=== PATIENT | female | born 1940 | race Caucasian/White ===

== ENCOUNTER → 2018-03-17 | Outpatient (CLI) | payer OTHER, MEDICARE ==
[~2018-03-17] VITALS: Ht 162.6 cm; Wt 61.6 kg
[~2018-03-17] MED LIST: ACETAMINOPHEN-1 EAC1 PO; ALEVE220 M1 PO; AREDS EYE VITAMIN PO; AREDS PO; CLOBETASOL PROP50 M1 VAG; COZAAR100 MG PO; ESTRACE1 TUBE VAG; HYDROCODON-ACE1 EAC7 PO; PEPCID AC20 MG PO; PRESERVISION A1 EAC2 PO; STOOL SOFTENER100 MG PO; TRAMADOL 50 MG50 MG PO; TRIAMCINOLONE 080 G3 TOP; TUMS PO; TUMS200 MG PO; TYLENOL325 MG PO
--- NOTE | ~2018-03-17 | HPC ---
[facility] [address] [place] [address] PAIN MANAGEMENT CONSULTATION Name: ORTIZ LOPEZ Room #: REG [facility].#: [id number] Admission: 03/17/18 Attend Phys: Matty Diaz MD Discharge: Date of : 36 Report #: [id number] THIS REPORT FOR: //name// CC: Matty Juarez MD DATE OF SERVICE: 03/17/2018 CHIEF COMPLAINT: Followup visit for low back pain with radiculopathy. HISTORY OF PRESENT ILLNESS: The patient returns to pain clinic today complaining of pain mostly across the lumbosacral segment. She has had a previous laminectomy and has spinal stenosis. I have previously injected her above the level of her fusion with some benefit. I also provide for her medication under terms of written opioid agreement. She has been using tramadol 50 mg q. 6 hours, and I allow her 90 tablets with 2 refills. She has been taking at night, often finds that she has difficulty sleeping. We talked about the serotonin effects sometimes can be activating. She might benefit better from taking the Tylenol No. 3 at bedtime. PQRS REVIEW: 1. She has history of osteoarthritis. 2. She has kept her weight down and looks younger than her stated age. Her BMI is 23.3. 3. Pain intensity is generally low except when she is walking, at which time the pain increases fairly significantly. 4. The patient is on no blood thinners. 5. History of hypertension, yes, under treatment with losartan. All medications reviewed and reconciled. 6. She is on an opioid therapy greater than 6 weeks and an opioid contract has been signed. 7. She denies use of tobacco. PHYSICAL EXAMINATION: GENERAL: She is a ana maria 78-year-old that appears younger than her stated age. She moves from sitting to standing position and walks with marked antalgic features. She has difficulty in straightening particularly immediately after getting up. She has tenderness across the lumbosacral segment, particularly across the lumbar region. VITAL SIGNS: Her blood pressure 187/107, heart rate 73. Her BMI 23.3. EXTREMITIES: The scar from her previous surgery is tender. There is no focal weakness. Deep tendon reflexes are diminished bilaterally, 1+ at knees and ankles. IMPRESSION: [facility] [address] [place] [address] PAIN MANAGEMENT CONSULTATION Name: ORTIZ LOPEZ Room #: REG [facility].#: [id number] Admission: 03/17/18 Attend Phys: Matty Diaz MD Discharge: Date of : 36 Report #: [id number] 1. Low back pain with radiculopathy, post-laminectomy syndrome. 2. Spinal stenosis. 3. Management of tramadol with an opioid agreement. I will provide her with a small amount of Tylenol No. 3, which may be more sedating in the evening. Side effects of opioids were discussed, importance of safeguarding all medication. PROCEDURE: Epidural steroid injection under fluoroscopic guidance. She was taken to fluoroscopic suite, placed prone, skin prepped with ChloraPrep. Skin anesthetized over the L5-S1 interspace. I was unable to enter the epidural space there due to osteophytic infiltration of the interspinous ligament and the ligamentum flavum. I then moved the needle to the L3-L4 level above the level of her laminectomy and it was advanced in the epidural space with loss of resistance technique. There was no blood or CSF aspirated. 1 mL of Omnipaque injected. Good spread of dye observed in the epidural space followed by 3 mL of 1% lidocaine mixed with 80 mg of triamcinolone. She tolerated the procedure well. She was observed for 45 minutes and discharged. Followup visit planned in the pain clinic in 3 months. By: [id number] [id number] Matty Diaz MD /nt
[2018-03-17 09:52] VITALS: BP 187/107
--- NOTE | 2018-03-17 10:01 | NUR ---
Pain Clinic Assessment: 1. History of Osteoarthritis: HIPS KNEES History of Rheumatoid Arthritis: 2. Height: 5 ft. 4 in. 162.6 cm. Weight: 135.8 lb. oz. 61.598 kg. Patient's BMI: 23.3 3. Vital Signs: BP: 187/107 Pulse: 73 Resp: 16 Temp: 02 Sat: 95 ECG Mon: 4. Pain Intensity: 1 5. Fall Risk: Dizziness: N Needs help standing or walking: N Fallen in the last 3 months: Y Fall risk comments: 6. Patient on Blood Thinner: None 7. History of Hypertension: Y 8. Opioid Therapy greater than 6 weeks: Y Opiate Contract Signed: 9. Risk Assessment Tool Provided: LOW 10. Functional Assessment Tool: 11. Recreational Drug Use: Never Drug Type: Tobacco Use: Never Smoker Tobacco Type: Amount or Packs/day: How Many Years: Alcohol Use: No Frequency: Quant:
== END | disposition home or self-care (01) ==
LOC: PAIN 07:01
DX: M54.16 Radiculopathy, lumbar region (principal); M48.061 Spinal stenosis, lumbar region without neurogenic claudication; M96.1 Postlaminectomy syndrome, not elsewhere classified; G89.29 Other chronic pain; I10 Essential (primary) hypertension; M19.90 Unspecified osteoarthritis, unspecified site; Z79.891 Long term (current) use of opiate analgesic; Z98.890 Other specified postprocedural states; Z96.659 Presence of unspecified artificial knee joint; Z96.649 Presence of unspecified artificial hip joint; Z79.899 Other long term (current) drug therapy

== ENCOUNTER → 2018-07-17 | Outpatient (CLI) | payer OTHER, MEDICARE ==
[~2018-07-17] VITALS: Ht 162.6 cm; Wt 62.9 kg
[~2018-07-17] MED LIST changes: +CELECOXIB100 MG PO; +K-DUR 20 MEQ T20 MEQ PO
--- NOTE | ~2018-07-17 | HPC ---
[facility] [address] [place] [address] PAIN MANAGEMENT CONSULTATION Name: ORTIZ LOPEZ Room #: REG [facility].#: [id number] Admission: 07/17/18 ������������������ Attend Phys: Matty Diaz MD Discharge: ������������������ Date of : 36 Report #: [id number] THIS REPORT FOR: //name// CC: Matty Juarez DATE OF SERVICE: 07/17/2018 SUBJECTIVE: Followup visit for low back pain with radiculopathy. I last saw the patient in 03/2018, received an epidural on that visit. She had a good response. Pain duration is variable. She has had some injections where the pain relief has been much more extensive. She reports now that her pain is 0 with sitting but when she is up in the morning, she has more pain. She has bilateral lower extremity weakness. She complains of stiffness in her low back and into her legs. Pain intensity can be as high as 7-8. MEDICATIONS: Include Celebrex 100 mg, tramadol 50 mg q.6 hours, acetaminophen as needed, losartan, triamcinolone. She is on no blood thinners, but she is treated for hypertension. She is a bit hypertensive today. She is not a fall risk. She denies use of tobacco. She drinks alcohol in social setting. PHYSICAL EXAMINATION: GENERAL: She is a pleasant 78 years old. VITAL SIGNS: Blood pressure 157/100, heart rate 72, BMI 23.8. MUSCULOSKELETAL: She is able to move easily from sitting to standing position. She has a positive straight leg raising discomfort bilaterally. IMPRESSION: Lumbar radiculopathy, bilateral lower extremities. RECOMMENDATIONS: Epidural steroid injection under fluoroscopic guidance. PROCEDURE: She was taken to fluoroscopic suite for treatment, placed prone, skin prepped with ChloraPrep. Skin anesthetized over the L3-L4 interspace. A 20-gauge Tuohy epidural needle advanced in the epidural space with loss of resistance technique. There was no blood or CSF aspirated. A 1 mL of Omnipaque injected. Good spread of dye observed in the epidural space, was followed by [address] [address] PAIN MANAGEMENT CONSULTATION Name: ORTIZ LOPEZ Room #: REG [facility] [place].#: [id number] Admission: 07/17/18 ������������������ Attend Phys: Matty Diaz MD Discharge: ������������������ Date of : 36 Report #: [id number] mL of 0.5% lidocaine mixed with 80 mg triamcinolone. She tolerated the procedure well, was observed for 45 minutes and discharged. Followup as needed. ��������������������������������������������� ���������������������������������������� By: ��������������������������������������������� 1839 [id number] Matty Diaz MD /nt
[2018-07-17 13:07] VITALS: BP 157/101
--- NOTE | 2018-07-17 13:21 | NUR ---
Pain Clinic Assessment: 1. History of Osteoarthritis: HIPS KNEES History of Rheumatoid Arthritis: 2. Height: 5 ft. 4 in. 162.6 cm. Weight: 138.6 lb. oz. 62.868 kg. Patient's BMI: 23.8 3. Vital Signs: BP: 157/101 Pulse: 72 Resp: 14 Temp: 02 Sat: 96 ECG Mon: 4. Pain Intensity: 0 now 5. Fall Risk: Dizziness: N Needs help standing or walking: Y Fallen in the last 3 months: Y Fall risk comments: 6. Patient on Blood Thinner: None 7. History of Hypertension: Y 8. Opioid Therapy greater than 6 weeks: Y Opiate Contract Signed: 9. Risk Assessment Tool Provided: LOW 10. Functional Assessment Tool: 11. Recreational Drug Use: Never Drug Type: Tobacco Use: Never Smoker Tobacco Type: Amount or Packs/day: How Many Years: Alcohol Use: No Frequency: Quant:
== END | disposition home or self-care (01) ==
LOC: PAIN 06:56
DX: M54.16 Radiculopathy, lumbar region (principal); G89.29 Other chronic pain; I10 Essential (primary) hypertension; Z79.899 Other long term (current) drug therapy; Z98.890 Other specified postprocedural states

== ENCOUNTER → 2018-09-25 | Outpatient (CLI) | payer OTHER, MEDICARE ==
[~2018-09-25] VITALS: Ht 162.6 cm; Wt 64.9 kg
--- NOTE | ~2018-09-25 | HPC ---
[facility] [place] [address] [place] [address] PAIN MANAGEMENT CONSULTATION Name: ORTIZ LOPEZ Room #: REG [facility].#: [id number] Admission: 09/25/18 ������������������ Attend Phys: Matty Diaz MD Discharge: ������������������ Date of : 36 Report #: [id number] THIS REPORT FOR: //name// CC: Matty Juarez DO DATE OF SERVICE: 09/25/2018 Followup visit for low back pain and weakness. The patient is here today and her pain is worsening. She complains of bilateral lower extremity weakness. She has trouble walking distances. She uses a cart and scooter at the grocery store. Pain radiates from her back through her buttocks, but not much into the legs. It does not appear to be radicular, but there may be some radicular component. Based upon physical exam. I would like to get an MRI to evaluate. She has had her left knee replaced. She has pain in her right. She has an appointment with Dr. Frazier for knee evaluation. PQRS REVIEW: 1. Positive for osteoarthritis involving hips and knees. 2. She is 5 feet 4 inches, 143 pounds with a BMI of 24.5. 3. Blood pressure is 154/95, heart rate 75 and respirations 16. 4. Pain intensity is 2 with sitting position; with standing and weightbearing, it rapidly increases to an 8 or 9. 5. She needs help standing and walking. Her gait is markedly antalgic, but she does not fall and has not fallen in the 3 months. I would consider her, however, a fall risk because of her pain and gait. 6. No blood thinning medications. 7. She has a history of hypertension and is under treatment by her primary care physician. Her blood pressure has been stable in our clinic. All medications from her list are reviewed and reconciled, including Celebrex, tramadol and losartan. 8. She has signed an opioid agreement for the use of tramadol, which is helpful. 9. She is at low risk for addiction by the opioid risk tool. 10. She denies use of tobacco and alcohol. PHYSICAL EXAMINATION: VITAL SIGNS: As noted. GENERAL: She is a pleasant 78-year-old who appears younger than her stated age. MUSCULOSKELETAL: She moves from a sitting to standing position. Her gait is markedly antalgic. She has much difficulty with flexion, extension, rotation and ewto-ti-oabg tilt. Tenderness all across the lumbosacral segment. [facility] [address] [place] [address] PAIN MANAGEMENT CONSULTATION Name: ORTIZ LOPEZ Room #: REG [facility]#: [id number] Admission: 09/25/18 ������������������ Attend Phys: Matty Diaz MD Discharge: ������������������ Date of : 36 Report #: [id number] Localized tenderness is not noted and tenderness is diffuse. There is some generalized weakness of the lower extremities. Straight leg raising does reproduce some pain into her hips and legs posteriorly, which may well be radiculopathy. She has some tenderness across the scar from previous back surgery. IMPRESSION: Low back pain with radiculopathy and lumbar spondylosis. Post-laminectomy syndrome. Likely spinal stenosis by symptoms and history. RECOMMENDATIONS: 1. I would like to do an MRI of the lumbar spine before proceeding with any additional treatments. She has not had lasting benefit from her epidural injections. 2. Continue with tramadol, it was called to the pharmacy at [facility]. 3. Follow up after MRI is completed. ��������������������������������������������� ���������������������������������������� By: ��������������������������������������������� 1831 0200 Matty Diaz MD /nt
[2018-09-25 14:38] VITALS: BP 154/95
--- NOTE | 2018-09-25 14:58 | NUR ---
Pain Clinic Assessment: 1. History of Osteoarthritis: HIPS KNEES History of Rheumatoid Arthritis: 2. Height: 5 ft. 4 in. 162.6 cm. Weight: 143.0 lb. oz. 64.864 kg. Patient's BMI: 24.5 3. Vital Signs: BP: 154/95 Pulse: 75 Resp: 16 Temp: 02 Sat: 97 ECG Mon: 4. Pain Intensity: 2 now 5. Fall Risk: Dizziness: N Needs help standing or walking: Y Fallen in the last 3 months: N Fall risk comments: 6. Patient on Blood Thinner: None 7. History of Hypertension: Y 8. Opioid Therapy greater than 6 weeks: Y Opiate Contract Signed: 03/17/18 9. Risk Assessment Tool Provided: LOW 10. Functional Assessment Tool: 11. Recreational Drug Use: Never Drug Type: Tobacco Use: Never Smoker Tobacco Type: Amount or Packs/day: How Many Years: Alcohol Use: No Frequency: Quant:
== END ==
LOC: PAIN 06:59
DX: M47.26 Other spondylosis with radiculopathy, lumbar region (principal); M96.1 Postlaminectomy syndrome, not elsewhere classified

== ENCOUNTER → 2018-10-13 | Outpatient (CLI) | payer OTHER, MEDICARE ==
[~2018-10-13] VITALS: Ht 162.6 cm; Wt 65.6 kg
[~2018-10-13] MED LIST changes: +DOXYCYCLINE HY100 M3 PO; +MUPIROCIN22 GM
[2018-10-13 13:04] VITALS: BP 155/94
--- NOTE | 2018-10-13 13:21 | NUR ---
Pain Clinic Assessment: 1. History of Osteoarthritis: HIPS KNEES History of Rheumatoid Arthritis: Not Applicable 2. Height: 5 ft. 4 in. 162.6 cm. Weight: 144.6 lb. oz. 65.590 kg. Patient's BMI: 24.8 3. Vital Signs: BP: 155/94 Pulse: 77 Resp: 16 Temp: 02 Sat: 98 ECG Mon: 4. Pain Intensity: 4 5. Fall Risk: Dizziness: N Needs help standing or walking: Y Fallen in the last 3 months: N Fall risk comments: 6. Patient on Blood Thinner: None 7. History of Hypertension: Y 8. Opioid Therapy greater than 6 weeks: Y Opiate Contract Signed: 03/17/18 9. Risk Assessment Tool Provided: LOW 10. Functional Assessment Tool: 11. Recreational Drug Use: Never Drug Type: Tobacco Use: Never Smoker Tobacco Type: Amount or Packs/day: How Many Years: Alcohol Use: No Frequency: Quant:
--- NOTE | 2018-10-16 16:33 | HPC ---
[facility] [address] [place] [address] PAIN MANAGEMENT CONSULTATION Name: ORTIZ LOPEZ [facility] [id number] Admission: 10/13/18 Attend Phys: Matty Diaz MD Discharge: Date of : 36 Report #: [id number] THIS REPORT FOR: //name// CC: Matty Juarez DO DATE OF SERVICE: 10/13/2018 Followup visit for chronic low back pain with radiculopathy. The patient returns to pain clinic today for review of MRI and discussion of options for treatment. She has had a previous L5, partial L4 laminectomy. Above the level of this surgery at L3-L4, she has spinal stenosis 6 cm, much of it caused by the ligamentum flavum thickening. I reviewed her x-rays with her. I also shared information with Dr. Mitchell to discuss the possibility of mild. While I confirm most of her symptoms with him by phone, I did not tell him about the lower laminectomy. This might be a contraindication for the procedure, but I still have the patient see him in consultation. She has gotten some relief from the stenosis and weakness with epidural injections. Her radicular symptoms are mostly weakness and heaviness, not pain. Much of her pain is across the lumbosacral segment. PQRS: 1. She has history of osteoarthritis of hips and knees. 2. BMI is 24.8, slightly up. 3. Vital signs: Blood pressure 155/94, heart rate 77, respirations 16, O2 sat 98. 4. Pain intensity 4/10. 5. She needs help standing and walks with a cane. She would be considered a fall risk, but has not fallen in the last 3 months. 6. She is on no blood thinners. 7. History of hypertension. Medication treatments are reviewed and reconciled along with all other medications from the electronic medical record. 8. Opioid agreement signed in March 2018. 9. Opioid risk tool was completed and she considered at low risk for addiction. 10. She denies use of tobacco and alcohol at this time. PHYSICAL EXAMINATION: She appears younger than her stated age. She moves from a sitting to standing position, but has difficulty with standing in an erect position. She has tenderness across the lumbosacral segment. There is positive straight leg raising discomfort. Most of this was high in the hips and across the sacrum. There is mild tenderness along the scar. [address] [address] PAIN MANAGEMENT CONSULTATION Name: ORTIZ LOPEZ [id number] Admission: 10/13/18 Attend Phys: Matty Diaz MD Discharge: Date of : 36 Report #: [id number] IMPRESSION: 1. Chronic low back pain with radiculopathy, post-laminectomy syndrome. 2. Spinal stenosis, L3-L4. 3. Management of high risk medications under terms of written opioid agreement. PROCEDURE: Epidural injection L3-L4. She was taken to fluoroscopic suite, placed prone, skin prepped with ChloraPrep. Skin anesthetized over the L3-L4 interspace. A 20-gauge Tuohy epidural needle advanced in the epidural space through the ligamentum flavum. There was no blood or CSF aspirated. A 1 mL of Omnipaque demonstrated an epidurogram was followed by 3 mL of 0.5% lidocaine mixed with 80 mg triamcinolone. She tolerated the procedure well and was observed for 45 minutes and discharged. Follow up as needed. <ELECTRONICALLY SIGNED> By: Matty Diaz MD 10/16/18 1633 1614 0011 Matty Diaz MD /nt
--- NOTE | 2018-10-16 16:33 | HPC ---
[facility] [address] [place] [address] PAIN MANAGEMENT CONSULTATION Name: ORTIZ LOPEZ Room #: REG [facility]la.#: [id number] Admission: 10/13/18 Attend Phys: Matty Diaz MD Discharge: Date of : 38 Report #: [id number] THIS REPORT FOR: //name// CC: Matty Juarez DATE OF SERVICE: 10/13/2018 Followup visit for lumbar radiculopathy. The patient returns to the pain clinic today in followup. She has post-laminectomy syndrome with radiculopathy. A new MRI was ordered. It shows stenosis above the level of her laminectomy at L3-L4. The stenosis is 0.6 cm. She also has degenerative disk disease at several levels, most prominently at L5-S1. She has had treatment at [facility]. Dr. Mcmullen treated her with radiofrequency ablation without success. She has received some modest relief from epidural injections provided in our clinic. She had her first injection roughly 8 months ago. A second injection was performed 2 months ago and we will be repeating another injection today at her request. Epidurals have provided more relief than any other interventional treatment. Although she does not complain of radiculopathy, she does complain of weakness bilaterally. This is likely related to her stenosis, although it is not terribly severe. Much of the thickening occurs posteriorly in the area of the ligamentum flavum. I believe she is a mild candidate and I shared her pictures with her, agreement with Dr. Mitchell by phone. He is kind enough to see her for consideration of mild. Her prior surgery may make that a contraindication, but I will let him make that decision after reviewing her films. She takes a small amount of tramadol, finds it helpful. We discussed taking a bit stronger pain medication today and discussed hydrocodone. Two hydrocodone 5 mg per day would be an MME of 10. We discussed the opioid crisis and the differences between low and high doses. I think it is reasonable for her to have a trial of those medications at this time. Side effects were reviewed. PHYSICAL EXAMINATION: GENERAL: Pleasant female, moves from a sitting to standing position independently, walks with a cane. She has difficulty standing upright. BMI is 24.8. VITAL SIGNS: Blood pressure 155/95, heart rate 77, respirations 16, O2 sat 98. Pain intensity is a 4/10. CHEST: Clear. CARDIAC: Rhythm is regular. MUSCULOSKELETAL: Small scar overlying L5-S1. Mild tenderness there. [facility] [address] [place] [address] PAIN MANAGEMENT CONSULTATION Name: ORTIZ LOPEZ Room #: REG [facility]#: [id number] Admission: 10/13/18 Attend Phys: Matty Diaz MD Discharge: Date of : 36 Report #: [id number] Tenderness above her scar. Pain with back extension. Gait is antalgic and she uses a walker due to weakness. Generalized weakness is noted throughout the lower extremities with hip flexion, leg extension, plantar and dorsiflexion of the foot. Sensation is normal. There is no loss of sensation to light touch. Deep tendon reflexes are diminished bilaterally. Straight leg raising is negative for leg pain. She has some tenderness behind the right knee with history of Milligan cyst. IMPRESSION: Post-laminectomy syndrome with radiculopathy, mostly weakness and neurogenic claudication. Spinal stenosis, 6 mm at L3-L4. Prominent ligamentum flavum thickening. RECOMMENDATIONS: 1. Visit Dr. Mitchell to see what he thinks about mild. 2. Trial of hydrocodone 5/325, #30 tablets. 3. Repeat lumbar epidural steroid injection under fluoroscopic guidance, L3-L4. PROCEDURE: She was taken to fluoroscopic suite, placed prone, skin prepped with ChloraPrep. Skin anesthetized over L3-L4. A 20-gauge Tuohy epidural needle advanced first attempt in the epidural space, 1 mL of Omnipaque injected with excellent epidurogram achieved. It was followed by 3 mL of 0.5% lidocaine mixed with 80 mg of triamcinolone. She tolerated the procedure well and was observed for 45 minutes and discharged. Follow up as needed. <ELECTRONICALLY SIGNED> By: Matty Diaz MD 10/16/18 1633 [id number] [id number] Matty Diaz MD /nt
== END | disposition home or self-care (01) ==
LOC: PAIN 06:58
DX: M51.17 Intervertebral disc disorders with radiculopathy, lumbosacral region (principal); M48.062 Spinal stenosis, lumbar region with neurogenic claudication; M96.1 Postlaminectomy syndrome, not elsewhere classified; G89.29 Other chronic pain; I10 Essential (primary) hypertension; M19.90 Unspecified osteoarthritis, unspecified site; Z79.891 Long term (current) use of opiate analgesic; Z98.890 Other specified postprocedural states; Z79.899 Other long term (current) drug therapy

== ENCOUNTER → 2019-04-13 | Outpatient (CLI) | payer OTHER, MEDICARE ==
[~2019-04-13] VITALS: Ht 162.6 cm; Wt 64.4 kg
[2019-04-13 13:24] VITALS: BP 165/100
--- NOTE | 2019-04-13 13:54 | NUR ---
Pain Clinic Assessment: 1. History of Osteoarthritis: HIPS KNEES History of Rheumatoid Arthritis: Not Applicable 2. Height: 5 ft. 4 in. 162.6 cm. Weight: 142.0 lb. oz. 64.411 kg. Patient's BMI: 24.4 3. Vital Signs: BP: 165/100 Pulse: 77 Resp: 14 Temp: 02 Sat: 98 ECG Mon: 4. Pain Intensity: 1 5. Fall Risk: Dizziness: N Needs help standing or walking: Y Fallen in the last 3 months: N Fall risk comments: 6. Patient on Blood Thinner: None 7. History of Hypertension: Y 8. Opioid Therapy greater than 6 weeks: Y Opiate Contract Signed: 03/17/18 9. Risk Assessment Tool Provided: LOW 10. Functional Assessment Tool: 11. Recreational Drug Use: Never Drug Type: Tobacco Use: Never Smoker Tobacco Type: Amount or Packs/day: How Many Years: Alcohol Use: No Frequency: Quant:
--- NOTE | 2019-04-14 08:28 | HPC ---
[facility] [address] [place] [address] PAIN MANAGEMENT CONSULTATION Name: ORTIZ LOPEZ Room #: REG [facility].#: [id number] Admission: 04/13/19 Attend Phys: Lidia Clement Discharge: Date of : 38 Report #: [id number] THIS REPORT FOR: cc: Gui Juarez,Gui Medeiros,Lidia MONTEIRO ~ THIS REPORT FOR: //name// CC: Lidia Juarez DATE OF SERVICE: 04/13/2019 CHIEF COMPLAINT: Low back pain with radiculopathy. HISTORY OF PRESENT ILLNESS: This is a very pleasant 79-year-old female who returns to the pain clinic today for refill of her medications. She is reporting a pain score 1/10 today, though she reports that at times it is significantly higher in her low back, bilateral legs. She feels that her legs are weak, does use a cane at all times, but has not fallen per her report. 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 She complains of a constant achy, weakness in her lower extremities. She feels that is worse upon getting up in the morning or sitting too long. She feels that medications are beneficial, though they are not as helpful as they had in the past. She has recently been out of her tramadol and has been taking some hydrocodone. She finds that these are beneficial in controlling her pain. She had been on tramadol for quite some time. She is wondering possibly about a rotation of medicines. She is also here to discuss a possible epidural steroid injection by Dr. Matty Diaz. ALLERGIES: No known drug allergies. CURRENT LIST OF MEDICATIONS: Tramadol 50 mg t.i.d. p.r.n., hydrocodone 5/325 for severe pain, Cozaar 100 mg daily. PQRS: 1. She has osteoarthritis in her hips and knees. Denies rheumatoid arthritis. 2. Height is 5 feet 4 inches, weight is 142, BMI is 24. 3. Vital signs, blood pressure 165/100, pulse is 77, respirations 14, and oxygen sat is 98. 4. Pain score is 1/10. 5. Denies dizziness. Does use a cane for ambulation, has not fallen in the last 3 months. 6. The patient is not on any blood thinners, but does take medicine for hypertension, which is elevated today. 7. Opioid therapy is greater than 6 weeks. She [place] [address] PAIN MANAGEMENT CONSULTATION Name: ORTIZ LOPEZ Room #: REG [facility].#: [id number] Admission: 04/13/19 Attend Phys: Lidia Clement Discharge: Date of : 38 Report #: [id number] in the past. Risk assessment tool is low. Functional assessment is . 8. Recreational drug use, she denies. She is not a smoker and does not drink alcohol. According to the prescription monitoring system, the patient is able to fill her medicines today. Her last fill was in March, filling them appropriately, current morphine mEq according to the CDC guidelines is lower than 20 MME. PHYSICAL EXAMINATION: GENERAL: This is alert and orientated 79-year-old female who appears younger than her stated age, placing her current pain score at 1/10 today. HEENT: Normocephalic. She has decreased vision due to macular degeneration, right eye greater than the left. Mucous membranes are dry. She has cracks around her oral mucosa. Speech is fluent. MUSCULOSKELETAL: She moves from sitting to standing position using the armrest, uses a cane for ambulation. She has tenderness in her lumbosacral segment of her spine. Pain is located in her lower back that radiates down her bilateral legs following the L3-L4 dermatomal distribution, also complains of tenderness behind her right knee. IMPRESSION: 1. Chronic low back pain with radiculopathy, post-laminectomy syndrome. 2. Spinal stenosis at the L3-L4 recently underwent a mild procedure. 3. Management of high risk medications under terms of written opioid agreement. PLAN: 1. We discussed treatment options with the patient today. The patient reports overall weakness in her lower extremities, though they appear to be strong on examination. We did discuss strengthening exercises from a physical therapist. The patient is agreeable to go a few times to see what they have to offer. I have written a prescription. She may take to therapy location closer to her house than our hospital. 2. We discussed her medications. The patient at times taken 2 tramadol. She finds this beneficial, though it takes a while to reduce her pain, some days she is requiring no tramadol. Other days, she is requiring more than 3. 3. We discussed that she may take 2 tablets at a time if she needs to on her severe increased pain days. We will allow her up to 4 tablets a day of tramadol with 2 additional refills. 4. The patient is requesting a refill of her hydrocodone that she takes when she has severe pain. Dr. Diaz had written this in the past for her and she just recently finished this prescription. We will refill this medication as well today under the collaboration with Dr. Matty Diaz. We did discuss that she may need to have an opioid rotation to using only hydrocodone if her pain continues to be problematic. She will discuss this with Dr. Matty Diaz at her appointment with him. 5. The patient is scheduled for a lumbar epidural steroid injection on [address] [address] PAIN MANAGEMENT CONSULTATION Name: ORTIZ LOPEZ [id number] Admission: 04/13/19 Attend Phys: Lidia Clement Discharge: Date of : 38 Report #: [id number] 04/23/2019. The patient has found these very beneficial in the past in relieving some of her discomfort. Her last epidural was in October prior to her Mild procedure. 6. The patient's care collaborated with Dr. Matty Diaz today who I discussed with and he will send her medications electronically. <ELECTRONICALLY SIGNED> By: Lidia Clement 04/14/19 0828 [id number] Lidia Clement /nt
== END ==
LOC: PAIN 04-08 06:56
DX: M48.061 Spinal stenosis, lumbar region without neurogenic claudication (principal); M96.1 Postlaminectomy syndrome, not elsewhere classified; M54.16 Radiculopathy, lumbar region; Z79.899 Other long term (current) drug therapy

== ENCOUNTER → 2019-04-23 | Outpatient (CLI) | payer OTHER, MEDICARE ==
[~2019-04-23] VITALS: Ht 162.6 cm; Wt 64.9 kg
[2019-04-23 13:09] VITALS: BP 153/98
--- NOTE | 2019-04-30 14:31 | HPC ---
[facility]iel [facility] [place] [address] PAIN MANAGEMENT CONSULTATION Name: ORTIZ LOPEZ Room #: REG Sushma Acosta.#: [id number] Admission: 04/23/19 Attend Phys: Matty Diaz MD Discharge: Date of : 38 Report #: [id number] THIS REPORT FOR: cc: Gui Juarez,Matty Coon MD ~ THIS REPORT FOR: //name// CC: Matty Juarez DO DATE OF SERVICE: 04/23/2019 Followup visit for low back pain with radiculopathy. The patient returns to pain clinic today to discuss injection therapy. She saw Lidia Clement, clinical nurse specialist on 04/13/2019. We planned today to perform epidural steroid injection based upon her assessment 2 weeks ago. She has marked spinal stenosis at L3-L4. I sent her to Dr. Mitchell for an MILD procedure last year. Unfortunately, it did not provide the hope for relief and she continues to experience pain, stenotic, axial and radicular. I reviewed my collaborated assessment on 04/13/2019, and we discussed different approaches to perform an epidural injection today. I did briefly consider caudal injection, but they can be uncomfortable to perform and she was reluctant to undergo it. IMPRESSION: 1. Chronic low back pain with radiculopathy, post-laminectomy syndrome. 2. Spinal stenosis L3-L4 with failure of MILD to provide relief. 3. Management of high risk medications, which we provide under terms of written opioid agreement. PROCEDURE: Lumbar epidural injection L3-L4 under fluoroscopic guidance. After informed consent, she was taken to fluoroscopic suite where she was placed prone, skin was prepped with ChloraPrep. Skin was anesthetized over the L3-L4 interspace. A 20-gauge Tuohy epidural needle was advanced on the first attempt in the epidural space with loss of resistance. There was no blood nor CSF aspirated. A 1 mL of Omnipaque was injected and excellent epidurogram was achieved. It was then followed by 3 mL of 0.5% lidocaine mixed with 80 mg of triamcinolone. She tolerated the procedure well and was observed for a short time and discharged. [address] [address] PAIN MANAGEMENT CONSULTATION Name: ORTIZ LOPEZ Room #: REG [facility].#: [id number] Admission: 04/23/19 Attend Phys: Matty Diaz MD Discharge: Date of : 38 Report #: [id number] Follow up as needed for further injections depending on response. <ELECTRONICALLY SIGNED> By: Matty Diaz MD 04/30/19 1431 [id number] Matty Diaz MD /nt
== END | disposition home or self-care (01) ==
LOC: PAIN 06:50
DX: M54.16 Radiculopathy, lumbar region (principal); M96.1 Postlaminectomy syndrome, not elsewhere classified; M48.061 Spinal stenosis, lumbar region without neurogenic claudication; G89.29 Other chronic pain; Z98.890 Other specified postprocedural states; Z79.899 Other long term (current) drug therapy; Z79.891 Long term (current) use of opiate analgesic

== ENCOUNTER 2019-07-20 15:35 | Emergency (ER) | payer OTHER, MEDICARE ==
[~2019-07-20] VITALS: Ht 162.6 cm; Wt 63.5 kg
[~2019-07-20 15:35] MED LIST changes: -DRIZALMA SPRINK20 MG PO; -DULOXETINE HCL20 MG PO; -ELIQUIS5 M1 PO
[2019-07-20] MEDS ORDERED: DRIZALMA SPRINK20 MG PO (15:54)
[2019-07-20] MEDS ORDERED: DULOXETINE HCL20 MG PO (15:56)
[2019-07-20 16:07] LABS: ABSOLUTE NEUTROPHILS 7.5 thou/uL (1.4-8.2); BASOPHILS 0.6 % (0.0-2.0); EOSINOPHILS 2.2 % (0.0-3.0); HEMATOCRIT 40.9 % (37.0-47.0); HEMOGLOBIN 13.4 gm/dL (12.0-15.0); LYMPHOCYTES 17.5 % (24.0-44.0); MCH 30.7 pg (26.0-34.0); MCHC 32.8 g/dL (28.0-37.0); MCV 93.7 fL (80.0-100.0); MONOCYTES 9.7 % (1.0-8.0); PLATELET COUNT 171 thou/uL (150-400); RBC 4.36 mil/uL (4.20-5.00); RDW 14.2 % (10.5-14.5); WBC 10.8 thou/uL (4.0-11.0)
[2019-07-20 16:10] LABS: CALCIUM 8.5 mg/dL (8.5-10.1); CREATININE 1.4 mg/dL (0.6-1.0); POTASSIUM 3.2 mmol/L (3.5-5.1)
[2019-07-20] MEDS ORDERED: ELIQUIS5 M1 PO ×2 (16:44→17:46)
[2019-07-20 18:27] VITALS: BP 157/89
== END 2019-07-20 18:30 | disposition home or self-care (01) ==
LOC: ER 15:35
PROVIDERS: Emergency Medicine
DX: I82.401 Acute embolism and thrombosis of unspecified deep veins of right lower extremity (principal); Z98.890 Other specified postprocedural states; Z79.899 Other long term (current) drug therapy

== ENCOUNTER → 2019-07-20 | Outpatient (CLI) | payer OTHER, MEDICARE ==
[~2019-07-20] VITALS: Ht 162.6 cm; Wt 64.5 kg
[~2019-07-20] MED LIST changes: +DRIZALMA SPRINK20 MG PO; +DULOXETINE HCL20 MG PO; +ELIQUIS5 M1 PO
--- NOTE | ~2019-07-20 | HPC ---
[facility] [place] [address] PAIN MANAGEMENT CONSULTATION Name: ORTIZ LOPEZ Room #: REG SERGE Acosta.#: [id number] Admission: 07/20/19 Attend Phys: Matty Diaz MD Discharge: Date of : 38 Report #: [id number] THIS REPORT FOR: cc: Gui Juarez,Matty Coon MD ~ CC: Matty Juarez DATE OF SERVICE: 07/20/2019 Followup visit for low back pain, chronic; lumbar radiculopathy. The patient returns to pain clinic today in followup. I last saw her on 04/23/2019. She arrived in a wheelchair. As we began our visit, she complained immediately of new onset swelling of her right leg. We moved immediately to examination. She has pain and tenderness throughout her thigh and calf. Her leg is markedly swollen, twice the size of her left. There is discoloration as well. At that point in time, we just moved immediately from her original visit intension, which was the radiculopathy to assessment for deep venous thrombosis. I ordered a D-dimer and sent her directly to Radiology for ultrasound, which revealed a large deep venous thrombosis and her D-dimer was 13. She returned the pain clinic after our assessment. I spent some time with her, reviewing the concerns for DVT and she was sent to the Emergency Room. They will help manage medications, further consultations as necessary. PHYSICAL EXAMINATION: As noted above. GENERAL: Pleasant, alert and oriented, wearing a mask. She is 5 feet 4, 142 pounds, BMI is 24.4. Pain intensity 4/10. VITAL SIGNS: Her blood pressure is 133/86, heart rate 93, respirations 16, O2 sat 100 on room air. RESPIRATORY: She is having no difficulty with breathing. Her lungs are clear. IMPRESSION: 1. Acute deep venous thrombosis with extensive clot. Right-sided thrombus extending from the common femoral vein through the popliteal vein. 2. Chronic low back pain with radiculopathy secondary to spinal stenosis. PLAN: Return to the pain clinic after treatment for DVT. We will consider epidural therapy at some point. She may unfortunately remain on anticoagulation therapy for a period of time. We will have to wait until she is off that safely. Information regarding her DVT was conveyed to Dr. Gui Juarez. [address] [place] [address] PAIN MANAGEMENT CONSULTATION Name: ORTIZ LOPEZ Room #: REG [facility] Smith#: [id number] Admission: 07/20/19 Attend Phys: Matty Diaz MD Discharge: Date of : 38 Report #: [id number] Follow up as needed. By: [id number] Matty Diaz MD /nt
[2019-07-20 13:09] VITALS: BP 133/86
--- NOTE | 2019-07-20 13:21 | NUR ---
Pain Clinic Assessment: 1. History of Osteoarthritis: HIPS KNEES History of Rheumatoid Arthritis: Not Applicable 2. Height: 5 ft. 4 in. 162.6 cm. Weight: 142.2 lb. oz. 64.501 kg. Patient's BMI: 24.4 3. Vital Signs: BP: 133/86 Pulse: 93 Resp: 16 Temp: 02 Sat: 100 ECG Mon: 4. Pain Intensity: 4 5. Fall Risk: Dizziness: N Needs help standing or walking: Y Fallen in the last 3 months: N Fall risk comments: 6. Patient on Blood Thinner: None 7. History of Hypertension: Y 8. Opioid Therapy greater than 6 weeks: Y Opiate Contract Signed: 03/17/18 9. Risk Assessment Tool Provided: LOW 10. Functional Assessment Tool: 11. Recreational Drug Use: Never Drug Type: Tobacco Use: Never Smoker Tobacco Type: Amount or Packs/day: How Many Years: Alcohol Use: No Frequency: Quant:
--- NOTE | 2019-07-20 14:18 | NUR ---
PT PRESENTED WITH RLE TWICE THE SIZE OF HER LLE. SHINY, DUSKY AND HARD TO PALPATION. 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 NOTIFIED AND ORDERED D-DIMER AND RLE US AND DOPPLER TO R/O DVT. PT TAKEN IN W/C TO LAB. WILL TRANSFER TO RADIOLOGY FROM LAB WHEN HER LABS ARE COMPLETED. LAB TO CALL CLINIC.
--- NOTE | 2019-07-20 15:42 | NUR ---
PT RETURNED TO OFFICE VIA WHEELCHAIR TO RETRIEVE HER WALKER. NOTIFIED THAT SHE WAS POSITIVE FOR DVT IN RIGHT LEG. THANIA VARELA ATTEMPTED TO REACH PT PCP, BUT NO ANSWER, LEFT MESSAGE. NOTIFIED ED AND PT BROUGHT TO TRIAGE VIA WHEELCHAIR WITH STAFF ALSO BRINGING PATIENTS WALKER AND CANE OVER TO ED AT SAME TIME. PT IN ED, STABLE TO TRIAGE.
== END ==
LOC: RAD 07:01 → ULTRA 07:01 → PAIN 07:01
DX: M54.16 Radiculopathy, lumbar region (principal); R60.0 Localized edema; M48.00 Spinal stenosis, site unspecified; I82.411 Acute embolism and thrombosis of right femoral vein

== ENCOUNTER → 2019-11-16 | Outpatient (CLI) | payer OTHER, MEDICARE ==
[~2019-11-16] VITALS: Ht 162.6 cm; Wt 63.7 kg
[~2019-11-16] MED LIST changes: +DRIZALMA SPRINK20 MG PO; +DULOXETINE HCL20 MG PO; +ELIQUIS5 M1 PO
[2019-11-16 11:10] VITALS: BP 189/85
--- NOTE | 2019-11-16 11:17 | NUR ---
Pain Clinic Assessment: 1. History of Osteoarthritis: HIPS KNEES History of Rheumatoid Arthritis: Not Applicable 2. Height: 5 ft. 4 in. 162.6 cm. Weight: 140.4 lb. oz. 63.685 kg. Patient's BMI: 24.1 3. Vital Signs: BP: 189/85 Pulse: 83 Resp: 18 Temp: 02 Sat: 97 ECG Mon: 4. Pain Intensity: 3 5. Fall Risk: Dizziness: N Needs help standing or walking: N Fallen in the last 3 months: N Fall risk comments: 6. Patient on Blood Thinner: ELIQUIS 7. History of Hypertension: Y 8. Opioid Therapy greater than 6 weeks: Y Opiate Contract Signed: 03/17/18 9. Risk Assessment Tool Provided: LOW 10. Functional Assessment Tool: 11. Recreational Drug Use: Never Drug Type: Tobacco Use: Never Smoker Tobacco Type: Amount or Packs/day: How Many Years: Alcohol Use: No Frequency: Quant:
--- NOTE | 2019-11-17 13:03 | HPC ---
[facility] [address] [place] [address] PAIN MANAGEMENT CONSULTATION Name: ORTIZ LOPEZ Room #: REG [facility] Mtz#: [id number] Admission: 11/16/19 Attend Phys: Lidia Clement Discharge: Date of : 38 Report #: [id number] THIS REPORT FOR: cc: Gui Juarez Vincent R. DO Hocker,Lidia MONTEIRO ~ CC: Matty Diaz MD DATE OF SERVICE: 11/16/2019 CHIEF COMPLAINT: Low back pain, chronic lumbar radiculopathy and right knee pain. HISTORY OF PRESENT ILLNESS: This is a pleasant 79-year-old female who returns to the pain clinic today for refill of her opioid medications that she uses to help treat her ongoing low back pain and bilateral leg pain. She is reporting a pain score of 3/10 today. She feels that the tramadol as well as occasional hydrocodone have been beneficial in reducing her pain. She states it is a constant achy feeling. She does complain of some weakness in her lower back. She feels that walking increases her pain, but her medications as well as sitting and using heat occasionally has been beneficial. She denies problems with constipation or daytime somnolence. The patient does report that she continues to be on Eliquis as a result of the DVT that was diagnosed with Dr. Diaz in July at her visit. She is unsure how long she is going to need to stay on that medication. She does report she also had another cardiac episode since we have seen her last and she is going to follow up with the project development manager next week. She had a cardiac catheterization as well as a monitor that she wore for 24 hours. They were both negative, which she was relieved to hear. ALLERGIES: No known drug allergies. CURRENT LIST OF MEDICATIONS: Eliquis 5 mg b.i.d., Tramadol 50 mg q.i.d. p.r.n., hydrocodone 5/325 p.r.n. PreserVision, potassium, and Losartan. PQRS: 1. She has osteoarthritis in her hips and knees. Denies any rheumatoid arthritis. 2. Height is 5 feet 4 inches, weight is 140, BMI is 24. 3. Vital signs, blood pressure 189/85, pulse is 83, respirations 18, oxygen sat is 97%. 4. Pain score is 3/10. 5. Fall risk. Denies dizziness, does not need help walking or standing, has not fallen in the last 3 months. 6. The patient is on Eliquis as well [place] [address] PAIN MANAGEMENT CONSULTATION Name: ORTIZ LOPEZ Room #: REG [facility].#: [id number] Admission: 11/16/19 Attend Phys: Lidia Clement Discharge: Date of : 38 Report #: [id number] 7. Opioid therapy is greater than 6 weeks; therefore, an opioid signed contract is on the chart. Risk assessment is low. Functional assessment is 31/70. 8. Recreational drug use, she denies. She is not a smoker and does not drink alcohol. According to the prescription monitoring system, the patient is filling appropriately for her medications in a timely fashion. Her morphine milliequivalent per day is 20. PHYSICAL EXAMINATION: GENERAL: This is a pleasant, alert and orientated 79-year-old female who appears younger than her stated age, placing her current pain score at 3/10. HEENT: Normocephalic, atraumatic. Extraocular eye muscles are intact. She is wearing a mask. MUSCULOSKELETAL: She moves from a seated to standing position. Her gait is antalgic. She has difficulty with flexion, extension, rotation, and [id number] tilt. She has tenderness in the lumbosacral region that does radiate into her legs. She has pain and localized tenderness in her right knee at the Milligan's cyst. There is generalized weakness in her lower extremities. Straight leg raising is negative. IMPRESSION: 1. Low back pain with radiculopathy. 2. Lumbar spondylosis. 3. Post-laminectomy syndrome. 4. Spinal stenosis at the L3-L4. 5. Management of high risk medications under terms of written opioid agreement. 6. On anticoagulation therapy due to recent deep venous thrombosis. We reviewed the fact that opiate medications are being used to provide analgesia adequate to support activities of daily living, not attempting to achieve a specific pain score on the 0-10 Visual Analog Scale. The current opiate medications are providing sufficient analgesia to allow the patient to participate in activities of daily living. The patient is not exhibiting any aberrant behavior suggestive of drug diversion. The patient is not having any adverse reactions to medications. The patient is not suffering from daytime somnolence or mental acuity changes. The patient is managing opiate-induced constipation with appropriate [id number] agents and dietary considerations. The patient was counseled on concern for caution with operating a motor vehicle while using opiate medications. PLAN: 1. We discussed treatment options with the patient today. The patient finds her medications very beneficial, though she complains of weakness in her lower back. I encouraged her to try some strengthening exercises and I have given her a back exercise book, encouraging her to do these on a daily basis to help [address] [address] PAIN MANAGEMENT CONSULTATION Name: ORTIZ LOPEZ Room #: REG [facility]#: [id number] Admission: 11/16/19 Attend Phys: Lidia Clement Discharge: Date of : 38 Report #: [id number] strengthen her core. The patient does use a cane for ambulation due to weakness per her report. 2. We will have Dr. Matty Diaz send her hydrocodone 5/325, #30. This is to be used for severe pain only and the patient will also have tramadol 50 mg 4 times a day, #120 that has [address] Matty Diaz. He will send these medications electronically for her. 3. We did discuss the possibility of lumbar epidural steroid injection once the patient is able to be off her blood thinner for at least 3 days for a short period of time that will be up to the discretion of her primary doctor when she is able to have this performed. 4. The patient states that she continues to have some knee pain when she did recently have a Synvisc injection and was able to stay on her blood thinner for that injection. She is hopeful that these injections will help her not to have a total knee replacement. She feels that she is too old to go through the rehabilitation of a total knee again. 5. The patient is seen in collaboration with Dr. Matty Diaz. <ELECTRONICALLY SIGNED> By: Lidia Clement 11/17/19 1303 1158 [id number] Lidia Clement /julito
== END ==
LOC: PAIN 06:58
PROVIDERS: ATTEND Clinical Nurse Specialist Adult Health
DX: M25.561 Pain in right knee (principal); M47.26 Other spondylosis with radiculopathy, lumbar region; M96.1 Postlaminectomy syndrome, not elsewhere classified; M48.061 Spinal stenosis, lumbar region without neurogenic claudication; F11.20 Opioid dependence, uncomplicated; Z79.01 Long term (current) use of anticoagulants; Z79.899 Other long term (current) drug therapy

== ENCOUNTER → 2020-05-12 | Outpatient (CLI) | payer OTHER, MEDICARE ==
[~2020-05-12] VITALS: Ht 162.6 cm; Wt 59.1 kg
[~2020-05-12] MED LIST changes: +CHILDREN'S ASPI81 M1 PO; +COLACE100 MG PO; +COZAAR 50 MG TA50 M1 PO; +ELIQUIS2.5 MG PO; +HYDROCODON-ACE1 EAC8 PO; +LIPITOR 20 MG T20 M1 PO; +MIRALAX17 G1 PO; +OXYCODONE HCL 55 MG PO; +VOLTAREN GEL 1100 G1 TOP; +carvedilol PO
[2020-05-12 12:48] VITALS: BP 146/95
--- NOTE | 2020-05-13 08:31 | HPC ---
[facility] [address] [place] [address] PAIN MANAGEMENT CONSULTATION Name: ORTIZ LOPEZ Room #: REG SERGE Mtz#: [id number] Admission: 05/12/20 Attend Phys: Lidia Clement Discharge: Date of : 36 Report #: [id number] THIS REPORT FOR: cc: Gui Juarez Vincent R. DO Hocker,Lidia MONTEIRO ~ DATE OF SERVICE: 05/12/2020 CHIEF COMPLAINT: Low back pain, chronic lumbar radiculopathy and right knee pain, recent CVA. HISTORY OF PRESENT ILLNESS: This is an 80-year-old female who returns to the pain clinic today to discuss her medications. The patient reports that she was at home alone where she started to lose the use of her right arm. She used her Life Alert and was taken to the hospital where she was experiencing a stroke. She reports being in the hospital and rehab for about a month and now continues to have home health care at home. She continues to have slight deficit in her right arm, but no other deficits are noticeable today. The patient continues to have ongoing low back pain that radiates down her right leg as well as right knee discomfort. She describes it as a 3/10 today with her medications. It is worse with walking and any exercises. She is using a walker today and has a brace on her right knee. She believes the medications as well as sitting and heat are beneficial. She complains of some constipation issues and has been using [id number] medications. Today, she is wondering about opioid medications. The physician at the hospital told her no longer to take tramadol and currently she is on oxycodone 5 mg tablets. CURRENT LIST OF MEDICATIONS: Diclofenac gel, atorvastatin, carvedilol, OxyIR, Colace, MiraLax, Eliquis, baby aspirin and losartan. PATIENT'S PQRS: 1. She has osteoarthritic changes in her hips and knees as well as her back. She denies any rheumatoid arthritis. 2. Height is 5 feet 4 inches, weight is 130, BMI is 22. 3. Vital signs: Blood pressure 146/95, pulse is 75, respirations 16, oxygen sat is 98%. 4. Pain score is 3/10 on medications. 5. The patient is not experiencing any dizziness. She does need to use a walker for assistance and has fallen in the last 3 months. 6. The patient is on Eliquis as well as medications for hypertension. 7. Opioid therapy is greater than 6 weeks; therefore, an opioid signed contract is on the chart. Risk assessment is low. Functional assessment is 30/70. 8. Recreational drug use, she denies. She is not a smoker and does not drink alcohol. [address] [address] PAIN MANAGEMENT CONSULTATION Name: ORTIZ LOPEZ [facility]: [facility] [id number] Admission: 05/12/20 Attend Phys: Lidia Clement Discharge: Date of : 36 Report #: [id number] According to the prescription monitoring system, she most recently filled her oxycodone last week from the rehab facility 5 mg tablets for a short supply. Otherwise, no medications filled since February. PHYSICAL EXAMINATION: GENERAL: This is alert and orientated 80-year-old female who appears younger than her stated age, placing her current pain score at 3/10 today. She is a good historian. HEENT: Normocephalic, atraumatic. Extraocular eye muscles are intact. No facial drooping noted. She has good symmetry in her face. She is wearing a mask. MUSCULOSKELETAL: She moves from seated to standing position using the armrest. She has slight weakness in her right upper extremity when compared to the left. No deficits in her lower extremities. Tenderness in her right knee, which is in a brace today. Tenderness in her lumbosacral region that radiates into her legs. Lower extremity strength is diminished bilaterally. IMPRESSION: 1. Low back pain with radiculopathy. 2. Lumbar spondylosis. 3. Post-laminectomy syndrome. 4. Spinal stenosis of the L3-L4 level. 5. Recent cerebrovascular accident, on anticoagulation therapy. 6. Complex medical management utilizing opioid medications. PLAN: 1. We discussed treatment options with the patient today. Before the patient's cerebrovascular accident, she was on tramadol that was controlling her pain, taking it 4 times a day and the hospitalist do not want her taking that medication any longer and she was provided with oxycodone. We did discuss the cognitive issues that may come along with a stronger opioid medication. We will try to have her on the lowest most effective dose and offering her hydrocodone 7.5/325 mg, enabling her to take this three times a day. I encouraged her to take it in the morning upon arising when her pain is elevated and then before bedtime and especially before she does her therapy . The patient is agreeable with this plan of care. We will discuss options if this is not sufficient in controlling her pain. 2. We did discuss an epidural steroid injection. The patient would like to decrease some of her lumbar pain. I explained to her that she will need to have approval to be off her Eliquis. I do not think that her bearing grinder will allow her for quite some time due to her history of recent blood clot and then a stroke. When he reports that she is able to be off of that medication for 3 full days, Dr. Diaz would gladly perform an epidural steroid injection on her. 3. The patient is seen today in collaboration with Dr. Matty Diaz. The patient will return in 2 months. He did send hydrocodone 7.5/325, #90, for [facility] [address] [place] [address] PAIN MANAGEMENT CONSULTATION Name: ORTIZ LOPEZ [id number] Admission: 05/12/20 Attend Phys: Lidia Clement Discharge: Date of : 36 Report #: [id number] release today and again in 4 weeks. Time spent in patient consultation, reviewing pertinent imaging and reviewing clinical notes and chart, physical examination and correlation of physical findings and medical documentation to determine possible treatments of 20 minutes. Time spent in preparation for appointment, reviewing prescription monitoring system, reviewing previous records and treatment options, reviewing current medications 5 minutes. Time spent preparing and sending electronic prescriptions, documentation of visit and plan of treatment with collaborating physician 7 minutes. Total time spent 32 minutes. <ELECTRONICALLY SIGNED> By: Lidia Clement 05/13/20 0831 [id number] Lidia Clement /nt
== END ==
LOC: PAIN 06:47
PROVIDERS: ATTEND Clinical Nurse Specialist Adult Health
DX: M47.26 Other spondylosis with radiculopathy, lumbar region (principal); M25.561 Pain in right knee; M96.1 Postlaminectomy syndrome, not elsewhere classified; M48.061 Spinal stenosis, lumbar region without neurogenic claudication; I63.9 Cerebral infarction, unspecified; F11.20 Opioid dependence, uncomplicated; Z88.8 Allergy status to other drugs, medicaments and biological substances; Z79.899 Other long term (current) drug therapy

== ENCOUNTER → 2020-07-18 | Outpatient (CLI) | payer OTHER, MEDICARE ==
[~2020-07-18] VITALS: Ht 162.6 cm; Wt 58.9 kg
[2020-07-18 13:21] VITALS: BP 141/83
--- NOTE | 2020-07-18 13:34 | NUR ---
Pain Clinic Assessment: 1. History of Osteoarthritis: HIPS KNEES History of Rheumatoid Arthritis: Not Applicable 2. Height: 5 ft. 4 in. 162.6 cm. Weight: 129.8 lb. oz. 58.877 kg. Patient's BMI: 22.3 3. Vital Signs: BP: 141/83 Pulse: 80 Resp: 16 Temp: 02 Sat: 97 ECG Mon: 4. Pain Intensity: 3 5. Fall Risk: Dizziness: N Needs help standing or walking: Y Fallen in the last 3 months: N Fall risk comments: 6. Patient on Blood Thinner: ELIQUIS 7. History of Hypertension: Y 8. Opioid Therapy greater than 6 weeks: Y Opiate Contract Signed: 03/17/18 9. Risk Assessment Tool Provided: LOW-1 10. Functional Assessment Tool: 11. Recreational Drug Use: Never Drug Type: Tobacco Use: Never Smoker Tobacco Type: Amount or Packs/day: How Many Years: Alcohol Use: No Frequency: Quant:
== END ==
LOC: PAIN 10:44
PROVIDERS: ATTEND Clinical Nurse Specialist Adult Health
DX: M47.26 Other spondylosis with radiculopathy, lumbar region (principal); M17.11 Unilateral primary osteoarthritis, right knee; M48.061 Spinal stenosis, lumbar region without neurogenic claudication; Z79.891 Long term (current) use of opiate analgesic

== ENCOUNTER → 2020-09-22 | Outpatient (CLI) | payer OTHER, MEDICARE ==
[~2020-09-22] VITALS: Ht 162.6 cm; Wt 61.3 kg
[2020-09-22 11:10] VITALS: BP 135/86
--- NOTE | 2020-09-22 11:17 | NUR ---
Pain Clinic Assessment: 1. History of Osteoarthritis: HIPS KNEES History of Rheumatoid Arthritis: Not Applicable 2. Height: 5 ft. 4 in. 162.6 cm. Weight: 135.2 lb. oz. 61.326 kg. Patient's BMI: 23.2 3. Vital Signs: BP: 135/86 Pulse: 72 Resp: 14 Temp: 02 Sat: 97 ECG Mon: 4. Pain Intensity: 4 W/MEDS 5. Fall Risk: Dizziness: N Needs help standing or walking: Y Fallen in the last 3 months: N Fall risk comments: 6. Patient on Blood Thinner: SHAYLAIS 7. History of Hypertension: Y 8. Opioid Therapy greater than 6 weeks: Y Opiate Contract Signed: 03/17/18 9. Risk Assessment Tool Provided: LOW-1 10. Functional Assessment Tool: 11. Recreational Drug Use: Never Drug Type: Tobacco Use: Never Smoker Tobacco Type: Amount or Packs/day: How Many Years: Alcohol Use: No Frequency: Quant:
== END ==
LOC: PAIN 07:01
PROVIDERS: ATTEND Clinical Nurse Specialist Adult Health
DX: G89.29 Other chronic pain (principal); M54.5 Low back pain; M54.16 Radiculopathy, lumbar region; M48.061 Spinal stenosis, lumbar region without neurogenic claudication; Z79.891 Long term (current) use of opiate analgesic; Z79.01 Long term (current) use of anticoagulants; Z79.82 Long term (current) use of aspirin; Z79.899 Other long term (current) drug therapy

== ENCOUNTER → 2020-10-27 | Outpatient (CLI) | payer OTHER, MEDICARE ==
[~2020-10-27] VITALS: Ht 162.6 cm; Wt 60.8 kg
[2020-10-27 11:06] VITALS: BP 178/98
--- NOTE | 2020-10-27 11:07 | NUR ---
Pain Clinic Assessment: 1. History of Osteoarthritis: HIPS KNEES History of Rheumatoid Arthritis: Not Applicable 2. Height: 5 ft. 4 in. 162.6 cm. Weight: 134.0 lb. oz. 60.782 kg. Patient's BMI: 23.0 3. Vital Signs: BP: 178/98 Pulse: 72 Resp: 16 Temp: 02 Sat: 97 ECG Mon: 4. Pain Intensity: 6 5. Fall Risk: Dizziness: N Needs help standing or walking: N Fallen in the last 3 months: N Fall risk comments: 6. Patient on Blood Thinner: ELIQUIS 7. History of Hypertension: Y 8. Opioid Therapy greater than 6 weeks: Y Opiate Contract Signed: 03/17/18 9. Risk Assessment Tool Provided: LOW-1 10. Functional Assessment Tool: 11. Recreational Drug Use: Never Drug Type: Tobacco Use: Never Smoker Tobacco Type: Amount or Packs/day: How Many Years: Alcohol Use: No Frequency: Quant:
== END | disposition home or self-care (01) ==
LOC: PAIN 06:55
PROVIDERS: ATTEND Anesthesiology Pain Medicine
DX: M47.816 Spondylosis without myelopathy or radiculopathy, lumbar region (principal); M54.16 Radiculopathy, lumbar region; M96.1 Postlaminectomy syndrome, not elsewhere classified; G89.29 Other chronic pain; M19.90 Unspecified osteoarthritis, unspecified site; Z98.890 Other specified postprocedural states; Z79.899 Other long term (current) drug therapy; Z86.718 Personal history of other venous thrombosis and embolism; Z79.01 Long term (current) use of anticoagulants

== ENCOUNTER → 2021-01-09 | Outpatient (CLI) | payer OTHER, MEDICARE ==
[~2021-01-09] VITALS: Ht 162.6 cm; Wt 54.0 kg
[~2021-01-09] MED LIST changes: +HYDROCODONE-AP1 EA11 PO; +OXYBUTYNIN 5 MG5 M2 PO
[2021-01-09 10:56] VITALS: BP 140/89
--- NOTE | 2021-01-09 11:07 | NUR ---
Pain Clinic Assessment: 1. History of Osteoarthritis: HIPS KNEES History of Rheumatoid Arthritis: Not Applicable 2. Height: 5 ft. 4 in. 162.6 cm. Weight: 119.0 lb. oz. 53.978 kg. Patient's BMI: 20.4 3. Vital Signs: BP: 140/89 Pulse: 63 Resp: 16 Temp: 02 Sat: 96 ECG Mon: 4. Pain Intensity: 4 5. Fall Risk: Dizziness: N Needs help standing or walking: N Fallen in the last 3 months: Y Fall risk comments: 6. Patient on Blood Thinner: ELIQUIS 7. History of Hypertension: Y 8. Opioid Therapy greater than 6 weeks: Y Opiate Contract Signed: 03/17/18 9. Risk Assessment Tool Provided: LOW-1 10. Functional Assessment Tool: 11. Recreational Drug Use: Never Drug Type: Tobacco Use: Never Smoker Tobacco Type: Amount or Packs/day: How Many Years: Alcohol Use: No Frequency: Quant:
== END ==
LOC: PAIN 07:07
PROVIDERS: ATTEND Clinical Nurse Specialist Adult Health
DX: M47.26 Other spondylosis with radiculopathy, lumbar region (principal); M96.1 Postlaminectomy syndrome, not elsewhere classified; M17.0 Bilateral primary osteoarthritis of knee; Z79.82 Long term (current) use of aspirin; Z79.899 Other long term (current) drug therapy

== ENCOUNTER → 2021-04-03 | Outpatient (CLI) | payer OTHER, MEDICARE ==
[~2021-04-03] VITALS: Ht 162.6 cm; Wt 57.1 kg
[2021-04-03 13:02] VITALS: BP 161/86
--- NOTE | 2021-04-03 13:15 | NUR ---
Pain Clinic Assessment: 1. History of Osteoarthritis: HIPS KNEES History of Rheumatoid Arthritis: Not Applicable 2. Height: 5 ft. 4 in. 162.6 cm. Weight: 125.8 lb. oz. 57.062 kg. Patient's BMI: 21.6 3. Vital Signs: BP: 161/86 Pulse: 80 Resp: 18 Temp: 02 Sat: 97 ECG Mon: 4. Pain Intensity: 5 5. Fall Risk: Dizziness: N Needs help standing or walking: Y Fallen in the last 3 months: Y Fall risk comments: 6. Patient on Blood Thinner: ELIQUIS 7. History of Hypertension: Y 8. Opioid Therapy greater than 6 weeks: Y Opiate Contract Signed: 03/17/18 9. Risk Assessment Tool Provided: LOW-1 10. Functional Assessment Tool: 11. Recreational Drug Use: Never Drug Type: Tobacco Use: Never Smoker Tobacco Type: Amount or Packs/day: How Many Years: Alcohol Use: No Frequency: Quant:
== END ==
LOC: PAIN 10:14
PROVIDERS: ATTEND Clinical Nurse Specialist Adult Health
DX: M47.26 Other spondylosis with radiculopathy, lumbar region (principal); M54.16 Radiculopathy, lumbar region; M17.11 Unilateral primary osteoarthritis, right knee